=== PATIENT | male | born 1950 | race Caucasian/White ===

== ENCOUNTER 2020-04-12 14:50 | Emergency (ER) | payer OTHER, MEDICARE ==
[~2020-04-12] VITALS: Ht 170.2 cm; Wt 84.1 kg
[2020-04-12] MEDS ORDERED: FAMO40TA3 PO (15:40)
[2020-04-12] MEDS ORDERED: QUIN20TA15 PO (15:40)
[2020-04-12] MEDS ORDERED: GLIM4TAB5 PO (15:40)
[2020-04-12] MEDS ORDERED: EZET10TA21 PO (15:40)
[2020-04-12] MEDS ORDERED: METO37.5 PO (15:40)
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
[2020-04-12 16:45] VITALS: BP 147/73
== END 2020-04-12 16:57 | disposition home or self-care (01) ==
LOC: M ED 14:50 → EDBD 14:50 → M ED 16:57
DX: S16.1XXA Strain of muscle, fascia and tendon at neck level, initial encounter (principal); S50.02XA Contusion of left elbow, initial encounter; V43.52XA Car driver injured in collision with other type car in traffic accident, initial encounter; Y92.9 Unspecified place or not applicable; Y93.9 Activity, unspecified; Y99.9 Unspecified external cause status; M50.322 Other cervical disc degeneration at C5-C6 level; G31.1 Senile degeneration of brain, not elsewhere classified; J34.89 Other specified disorders of nose and nasal sinuses; Z79.899 Other long term (current) drug therapy